=== PATIENT | male | born 1960 | race Caucasian/White ===

== ENCOUNTER 2018-03-24 14:46 | Inpatient (IN) | END 2018-03-27 14:30 | disposition home or self-care (01) | DRG 637 ==

== ENCOUNTER 2019-06-02 08:05 | Day surgery (SDC) | payer OTHER ==
[2019-06-02] VITALS (10 sets, daily range): BP systolic 125–157; BP diastolic 76–83; PULSE 76–83; RESP 12–18; Ht 180.3 cm; Wt 102.2 kg
[~2019-06-02] VITALS: Ht 180.3 cm; Wt 102.2 kg
[~2019-06-02 08:05] MED LIST: ATOR-2 PO; CEFAZOLIN 2 GM/50 ML (PMX) 50 ML IVPB ONE; DOXY100T34 PO; HYDR-4011 PO; LISI-313 PO; MTF1000T PO; OMEG-157 PO; [UNRECOGNIZED DRUG - CODE] PO
[2019-06-02] MEDS ORDERED: LACTATED RINGER'S 1,000 ML IV SCH (09:00)
[2019-06-02] MEDS ORDERED: BUPIVACAINE 0.5% (SDV) 30 ML INJ ONE (09:10)
[2019-06-02] MEDS ORDERED: LIDOCAINE 2% (MDV) 20 ML INJ ONE (09:10)
[2019-06-02] MEDS ORDERED: POLYMYXIN/BACITRACIN 1L IRRIG ONE (09:10)
[2019-06-02] MEDS ORDERED: LIDOCAINE 2% (SDV) 5 ML INJ ONE (09:31)
[2019-06-02] MEDS ORDERED: PROPOFOL 20 ML ONE (09:31)
[2019-06-02] MEDS ORDERED: FENTAnyl 50 MCG/ML VIAL ONE (09:32)
[2019-06-02] MEDS ORDERED: DEXAMETHASONE 4 MG/ML 5 ML INJ ONE (09:46)
[2019-06-02] MEDS ORDERED: CEFAZOLIN 1 GM INJ ONE (09:46)
[2019-06-02] MEDS ORDERED: ONDANSETRON 4 MG INJ ONE (09:46)
[2019-06-02] MEDS ORDERED: FAMOTIDINE 20 MG INJ ONE (09:51)
[2019-06-02] MEDS ORDERED: KETOROLAC 30 MG INJ IV PRN (10:30)
[2019-06-02] MEDS ORDERED: OXYCODONE/ACETAMINOPHEN (5/325) TAB PO PRN ×2 (10:30)
[2019-06-02] MEDS ORDERED: HYDROmorphONE 1 MG/5 ML IV SYRINGE IV PRN ×2 (10:30)
[2019-06-02] MEDS ORDERED: MEPERIDINE 25 MG INJ IV PRN (10:30)
[2019-06-02] MEDS ORDERED: FENTAnyl 50 MCG/ML VIAL IV PRN ×2 (10:30)
[2019-06-26] MEDS ORDERED: CEFAZOLIN 2 GM/50 ML (PMX) 50 ML IVPB SCH (06:00)
[2019-07-01] MEDS ORDERED: TRANEXAMIC ACID 1GM/100ML(PMX) 0 ML ONE ×2 (14:34)
== END 2019-06-02 12:15 | disposition home or self-care (01) ==
LOC: SDS 08:05
PROVIDERS: ATTEND Podiatrist Foot & Ankle Surgery
DX: E11.621 Type 2 diabetes mellitus with foot ulcer (principal); M20.42 Other hammer toe(s) (acquired), left foot; I73.9 Peripheral vascular disease, unspecified; Z89.422 Acquired absence of other left toe(s); I10 Essential (primary) hypertension; Z79.82 Long term (current) use of aspirin
CPT/HCPCS: 73620; 82962; 87070; 87075; 87102; 87116; 88304; 88311; J0690; J1100; J2405; J3010

== ENCOUNTER 2019-06-27 09:27 | Day surgery (SDC) | payer OTHER ==
[2019-06-27] VITALS (17 sets, daily range): BP systolic 86–122; BP diastolic 47–70; PULSE 82–98; RESP 13–30; Ht 180.3 cm; Wt 99.9 kg
[~2019-06-27] VITALS: Ht 180.3 cm; Wt 99.9 kg
[~2019-06-27 09:27] MED LIST changes: -CEFAZOLIN 2 GM/50 ML (PMX) 50 ML IVPB ONE
[2019-06-27] MEDS ORDERED: METOCLOPRAMIDE 10 MG INJ IV PRN (10:30)
[2019-06-27] MEDS ORDERED: ONDANSETRON 4 MG INJ IV PRN (10:30)
[2019-06-27] MEDS ORDERED: HYDROmorphONE 1 MG/5 ML IV SYRINGE IV PRN ×2 (10:30)
[2019-06-27] MEDS ORDERED: OXYCODONE/ACETAMINOPHEN (5/325) TAB PO PRN (10:30)
[2019-06-27] MEDS ORDERED: DIPHENHYDRAMINE 50 MG INJ IV PRN (10:30)
[2019-06-27] MEDS ORDERED: LABETALOL HCL 20MG INJ IV PRN (10:30)
[2019-06-27] MEDS ORDERED: MEPERIDINE 25 MG INJ IV PRN (10:30)
[2019-06-27] MEDS ORDERED: FENTAnyl 50 MCG/ML VIAL IV PRN ×2 (10:30)
[2019-06-27] MEDS ORDERED: hydrALAzine 20 MG INJ IV PRN (10:30)
[2019-06-27] MEDS ORDERED: POLYMYXIN/BACITRACIN 1L IRRIG ONE (10:33)
[2019-06-27] MEDS ORDERED: BUPIVACAINE 0.5% (SDV) 30 ML INJ ONE (10:33)
[2019-06-27] MEDS ORDERED: LIDOCAINE 2% (MDV) 20 ML INJ ONE (10:33)
[2019-06-27] MEDS ORDERED: PROPOFOL 20 ML ONE (10:53)
[2019-06-27] MEDS ORDERED: MIDAZOLAM 1 MG/ML 2 ML INJ ONE (10:53)
[2019-06-27] MEDS ORDERED: CEFAZOLIN 1 GM INJ ONE (10:53)
[2019-06-27] MEDS ORDERED: ROPIVACAINE 0.5 % 30 ML VIAL ONE (10:53)
[2019-06-27] MEDS ORDERED: FENTAnyl 50 MCG/ML VIAL ONE ×2 (10:53→12:28)
[2019-06-27] MEDS ORDERED: METOCLOPRAMIDE 10 MG INJ ONE (12:43)
[2019-06-27] MEDS ORDERED: DEXTROSE 50% 50 ML SYRINGE ONE (12:43)
[2019-06-27] MEDS ORDERED: BUPIVACAINE 0.25% (MPF) 30 ML INJ ONE (12:43)
[2019-06-27] MEDS ORDERED: DEXAMETHASONE 4 MG/ML 5 ML INJ ONE (12:43)
[2019-06-27] MEDS ORDERED: ONDANSETRON 4 MG INJ ONE (12:43)
[2019-06-27] MEDS ORDERED: PHENYLephrine (100 MCG/ML) 10ML SYG ONE (12:44)
[2019-06-27] MEDS ORDERED: EPHEDrine 25 MG/5 ML SYG ONE (12:45)
== END 2019-06-27 15:19 | disposition home or self-care (01) ==
LOC: SDS 09:27
PROVIDERS: ATTEND Podiatrist Foot & Ankle Surgery
DX: T87.44 Infection of amputation stump, left lower extremity (principal); Y83.8 Other surgical procedures as the cause of abnormal reaction of the patient, or of later complication, without mention of misadventure at the time of the procedure; M86.172 Other acute osteomyelitis, left ankle and foot; M86.672 Other chronic osteomyelitis, left ankle and foot; E11.42 Type 2 diabetes mellitus with diabetic polyneuropathy; Z79.4 Long term (current) use of insulin; E78.5 Hyperlipidemia, unspecified; E66.9 Obesity, unspecified; Z68.30 Body mass index [BMI] 30.0-30.9, adult; I10 Essential (primary) hypertension
CPT/HCPCS: 28820; 82962; 88305; 88311; J0690; J1100; J2250; J2405; J2765; J2795; J3010; Z7512; Z7610; J2370